=== PATIENT | male | born 1960 | race American Indian/Alaskan Native ===

== ENCOUNTER 2017-06-23 11:03 | Emergency (ER) | payer BC ==
[2017-06-23 11:24] VITALS: BP 155/85
[2017-06-23] MEDS ORDERED: Ketorolac INJ* 60 MG/2 ML VIAL IM ONE (11:40)
--- NOTE | 2017-06-23 12:09 | RAD ---
Indication: Right lower rib pain. 3 views of the right lower ribs are reviewed. There is a fracture of the right 11th rib posteriorly. Minimal displacement is noted. Old injury of the right apex seventh and sixth ribs are noted. IMPRESSION: There appears to be a recent fracture of the right 11th rib. Other older fractures are noted.
--- NOTE | 2017-06-23 12:24 | UC ---
Jas Antonio Julia, scribed for Mary Figueroa MD on 06/23/17 at 1132 . Back Pain HPI - HPI Summary HPI Summary: This patient is a 56 year old M presenting to [facility] with a chief complaint of right lateral rib pain s/p fall in the shower last night. Pt believes he has broken ribs as this pain is similar to previous rib fractures. Patient reports shallow breathing because of pain. Patient denies abdominal pain, and head or neck injury. The patient rates the pain 10/10 in severity. Symptoms aggravated by movement. Pt takes gabapentin, Flexeril, and Vicodin for pain management for chronic back pain due to arthritis and bad discs. He used these medications to treat pain last night. He reports he drank scotch last night as well to relieve pain. Pt drove here alone. 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 - History of Current Complaint Chief Complaint: UCGeneralIllness Stated Complaint: RIB INJURY Time Seen by Provider: 06/23/17 11:22 Hx Obtained From: Patient Onset/Duration: Sudden Onset, Still Present Pain Intensity: 10 Pain Scale Used: 0-10 Numeric Back Pain: Is Discrete @ - right lateral ribs Character: Sharp Aggravating Factor(s): Movement, Other - deep breaths Alleviating Factor(s): Other - prescribed meds alcohol Related History: Similar Episode Dx As - broken ribs - Allergies/Home Medications Allergies/Adverse Reactions: Allergies Allergy/AdvReac Type Severity Reaction Status Date / Time Iodinated Contrast- Oral and AdvReac Nausea And Verified 06/23/17 11:18 IV Dye Vomiting Home Medications: Home Medications Gabapentin [Neurontin] 600 mg PO DAILY PRN 06/23/17 [History Confirmed 06/23/17] Pravastatin Sodium 40 mg PO DAILY 06/23/17 [History Confirmed 06/23/17] PMH/Surg Hx/FS Hx/Imm Hx - Additional Past Medical History Additional PMH: chronic back pain secondary to degenerative disease. Cardiovascular History: Hypertension - Surgical History Surgical History: Yes Surgery Procedure, Year, and Place: Hernia repair x 2 - Family History Known Family History: Positive: Other - mother of stroke. 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 Alcohol Use: Occasionally Substance Use Type: None Substance Use Comment - Amount & Last Used: nucynta and hydrocodone Smoking Status (MU): Former Smoker Type: Cigarettes When Did the Patient Quit Smoking/Using Tobacco: 10/06/2006 Review of Systems Respiratory: Negative Cardiovascular: Chest Pain, Other - treated hypertension Gastrointestinal: Negative Is Patient Immunocompromised?: No All Other Systems Reviewed And Are Negative: Yes Physical Exam Triage Information Reviewed: Yes Appearance: Pain Distress - mild to moderate., Obese Vital Signs: Initial Vital Signs Temp 99.5 F 06/23/17 11:11 Pulse 118 06/23/17 11:11 Resp 18 06/23/17 11:11 BP 155/85 06/23/17 11:11 Pulse Ox 95 06/23/17 11:11 Vital Signs Reviewed: Yes ENT: Positive: Pharynx normal Neck: Positive: Supple, Nontender, No Lymphadenopathy Respiratory Exam: Other - tenderness ribs 7-8 posterior to mid axillary line. + crepitus over fracture. Respiratory: Positive: Lungs clear, Normal breath sounds Cardiovascular: Positive: RRR, No Murmur Abdomen Description: Positive: Nontender, No Organomegaly, Other: - diastasis recti Musculoskeletal: Positive: Strength Intact Skin Exam: Normal Diagnostics - Laboratory Diagnostic Studies Completed/Ordered: Xray with minimally displaced fracture of the right 11th rib. - Radiology CXR with R ribs Radiology Interpretation Completed By: Radiologist - There appears to be a recent fracture of the right 11th rib. Other older fractures are noted. Physician has reviewed this report. Re-Evaluation - Re-Evaluation First Eval Re-Evaluation Time: 12:15 - some relief with toradol. Change: Improved Back Pain Course/Dx - Course Course Of Treatment: continue use of present analgesics; off work due to new rib fracture. - Differential Dx/Diagnosis Differential Diagnosis/HQI/PQRI: Fracture, Strain, Sprain Provider Diagnoses: fractured right 11th rib. Discharge - Sign-Out/Discharge Documenting (check all that apply): Discharge - Discharge Plan Condition: Stable Disposition: HOME Patient Education Materials: Rib Fracture (ED) Referrals: Jade Tesfaye MD [Primary Care Provider] - Additional Instructions: Follow up with Dr. Robledo or one of his colleagues at [facility] within the next week. Rib fracture will take 4 to 5 weeks to heal, but you do need to have your blood pressure checked in the next few weeks. At that time, you can determine the total amount of time needed off work. Continue use of hydrocodone and oxydone per your chronic pain management physicians. Avoid use of alcohol and narcotic pain medications. - Billing Disposition and Condition Condition: STABLE Disposition: HOME The documentation as recorded by the Jas solis Julia accurately reflects the service I personally performed and the decisions made by me, Mary Figueroa MD.
== END 2017-06-23 12:36 | disposition home or self-care (01) ==
LOC: UCEAST 11:03
DX: S22.31XA Fracture of one rib, right side, initial encounter for closed fracture (principal); W18.2XXA Fall in (into) shower or empty bathtub, initial encounter; Y93.E1 Activity, personal bathing and showering; Y92.002 Bathroom of unspecified non-institutional (private) residence as the place of occurrence of the external cause; I10 Essential (primary) hypertension; Z91.041 Radiographic dye allergy status; Z87.891 Personal history of nicotine dependence
CPT/HCPCS: 96372; 99201; G0463; J1885